=== PATIENT | female | born 1995 | race Native Hawaiian/Other Pacific Islander ===

== ENCOUNTER 2016-11-06 08:50 | Emergency (ER) | payer BC | END 2016-11-06 10:41 | disposition home or self-care (01) | DX: T15.01XA Foreign body in cornea, right eye, initial encounter (principal); X58.XXXA Exposure to other specified factors, initial encounter; H10.31 Unspecified acute conjunctivitis, right eye ==

== ENCOUNTER 2019-07-07 11:48 | Outpatient (CLI) | payer MEDICAID ==
[2019-07-07 12:35] LABS: ALBUMIN 3.7 g/dL (3.2-5.5); ALBUMIN/GLOBULIN RATIO 0.7 (1.0-2.2); ALKALINE PHOSPHATASE 82 IU/L (42-121); ALT ALANINE AMINOTRANSFERASE 21 IU/L (10-60); AST ASPARTATE AMINOTRANSFERASE 17 IU/L (10-42); BILIRUBIN,TOTAL 0.5 mg/dL (0.2-1.0); BUN - BLOOD UREA NITROGEN 10 mg/dL (6-20); CALCIUM 9.1 mg/dL (8.5-10.3); CARBON DIOXIDE - CO2 26 mmol/L (21-32); CHLORIDE 105 mmol/L (101-111); CHOL/HDL RATIO 5.1 (<4.4); CHOLESTEROL 215 mg/dL; CREATININE 0.6 mg/dL (0.4-1.0); GFR - MDRD 123 (>89); GLUCOSE 125 mg/dL (70-100); HDL CHOLESTEROL 42 mg/dL; LDL CHOLESTEROL,CALCULATED 128 mg/dL; SODIUM 138 mmol/L (135-145); TOTAL PROTEIN 8.9 g/dL (6.7-8.2); VLDL CHOLESTEROL 45 mg/dL
[2019-07-07 12:36] LABS: BILIRUBIN,DIRECT < 0.1 mg/dL (0.1-0.5)
[2019-07-07 12:50] LABS: HB2 TOTAL 13.2 g/dL; HEMOGLOBIN A1C 0.65 g/dL; HEMOGLOBIN A1C % 6.7 % (4.6-6.2)
[2019-07-07 12:54] LABS: PROLACTIN 18.27 ng/mL
[2019-07-07 13:17] LABS: FOLLICLE STIMULATING HORMONE 6.16 mIU/mL
[2019-07-08 05:11] LABS: ESTRADIOL 43 pg/mL
[2019-07-08 12:57] LABS: HEPATITIS C ANTIBODY NON-REACTIVE (NON-REACTIVE)
[2019-07-08 15:16] LABS: HIV AG/AB 4TH GEN NON-REACTIVE (NON-REACTIVE)
[2019-07-09 12:52] LABS: HSV 1 IGG TYPE SPECIFIC AB <0.90 index; HSV 2 IGG TYPE SPECIFIC AB <0.90 index
[2019-07-11 12:11] LABS: DHEA SULFATE 232 mcg/dL (18-391)
== END 2019-07-07 11:49 | disposition home or self-care (01) ==
LOC: LAB 11:48
PROVIDERS: ATTEND Obstetrics & Gynecology
DX: N97.0 Female infertility associated with anovulation (principal); E28.2 Polycystic ovarian syndrome; N91.5 Oligomenorrhea, unspecified; Z11.3 Encounter for screening for infections with a predominantly sexual mode of transmission
CPT/HCPCS: 36415; 80053; 80061; 81599; 82248; 82627; 82670; 83001; 83036; 83498; 83721; 84146; 84403; 84443; 84702; 86592; 86695; 86696; 86803; 87389

== ENCOUNTER 2019-07-29 10:55 | Outpatient (CLI) | payer MEDICAID | END 2019-07-29 10:56 | disposition home or self-care (01) | LOC: NS 10:55 | PROVIDERS: ATTEND Nurse Practitioner Family | DX: E11.9 Type 2 diabetes mellitus without complications (principal); Z71.3 Dietary counseling and surveillance; Z68.41 Body mass index [BMI] 40.0-44.9, adult; Z79.84 Long term (current) use of oral hypoglycemic drugs | CPT/HCPCS: 97802 ==

== ENCOUNTER 2019-08-12 11:50 | Outpatient (CLI) | payer MEDICAID | END 2019-08-12 11:51 | disposition home or self-care (01) | LOC: NS 11:50 | PROVIDERS: ATTEND Nurse Practitioner Family | DX: Z71.3 Dietary counseling and surveillance (principal); E11.9 Type 2 diabetes mellitus without complications; Z79.84 Long term (current) use of oral hypoglycemic drugs | CPT/HCPCS: 97803 ==

== ENCOUNTER 2020-01-26 12:01 | Outpatient (CLI) | payer MEDICAID ==
--- NOTE | 2020-01-26 21:43 | Ultrasound Report ---
Reason: OLIGOMENORRHEA Procedure Date: 01/26/2020 Accession Number: [id number] / [id number] Procedure: US - Pelvic w/Transvaginal CPT Code: Final Report FULL RESULT: EXAM: PELVIC ULTRASOUND EXAM DATE: 01/26/2020 01:24 PM. CLINICAL HISTORY: Oligomenorrhea. COMPARISON: None. TECHNIQUE: Realtime transabdominal pelvic scan performed to identify the uterus and adnexa and as an overview of other pelvic structures, followed by transvaginal scan to provide greater detail of the uterus and adnexa, with static image documentation. FINDINGS: Uterus: 6.8 x 2.8 x 3.9 cm, volume 38.3 cc. Anteverted position. Normal overall size and echotexture. Masses: None. Endometrium: 3 mm. Normal. Cervix: Unremarkable. Nabothian cyst at the left cervix. Right Ovary: 3.4 x 1.8 x 3.3 cm, volume 10.3 cc. Normal echotexture and blood flow. Left Ovary: 3.4 x 2.4 x 1.8 cm, volume 7.6 cc. Normal echotexture and blood flow. Free Fluid: None. Other: None. IMPRESSION: Normal pelvic ultrasound. RADIA
== END 2020-01-26 12:02 | disposition home or self-care (01) ==
LOC: DI 12:01
PROVIDERS: ATTEND Obstetrics & Gynecology
DX: N91.5 Oligomenorrhea, unspecified (principal); E11.9 Type 2 diabetes mellitus without complications
CPT/HCPCS: 36415; 76830; 76856; 80053; 80061; 82043; 82570; 83036; 83721; 84443

== ENCOUNTER 2020-01-26 13:22 | Outpatient (CLI) | payer MEDICAID ==
[2020-01-26 14:11] LABS: ALBUMIN 3.7 g/dL (3.2-5.5); ALBUMIN/GLOBULIN RATIO 0.8 (1.0-2.2); ALKALINE PHOSPHATASE 70 IU/L (42-121); ALT ALANINE AMINOTRANSFERASE 17 IU/L (10-60); AST ASPARTATE AMINOTRANSFERASE 14 IU/L (10-42); BILIRUBIN,TOTAL 0.6 mg/dL (0.2-1.0); BUN - BLOOD UREA NITROGEN 9 mg/dL (6-20); CALCIUM 9.4 mg/dL (8.5-10.3); CARBON DIOXIDE - CO2 27 mmol/L (21-32); CHLORIDE 103 mmol/L (101-111); CHOLESTEROL 206 mg/dL; CREATININE 0.9 mg/dL (0.4-1.0); GLUCOSE 104 mg/dL (70-100); HDL CHOLESTEROL 52 mg/dL; LDL CHOLESTEROL,CALCULATED 139 mg/dL; LDL/HDL RATIO 2.7 (<4.4); SODIUM 138 mmol/L (135-145); TOTAL PROTEIN 8.4 g/dL (6.7-8.2); VLDL CHOLESTEROL 15 mg/dL
[2020-01-26 14:15] LABS: CREATININE,URINE 60.8 mg/dL; MICROALBUMIN,URINE < 0.2 mg/dL (0-300.0)
[2020-01-26 14:55] LABS: HB2 TOTAL 13.3 g/dL; HEMOGLOBIN A1C 0.52 g/dL; HEMOGLOBIN A1C % 5.7 % (4.6-6.2)
== END 2020-01-26 13:23 | disposition home or self-care (01) ==
LOC: LAB 13:22
PROVIDERS: ATTEND Nurse Practitioner Family
DX: E11.9 Type 2 diabetes mellitus without complications (principal)
CPT/HCPCS: 36415; 80053; 80061; 82043; 82570; 83036; 83721; 84443

== ENCOUNTER 2020-02-21 12:40 | Outpatient (CLI) | payer MEDICAID ==
[2020-02-21 18:53] LABS: CALCIUM 9.1 mg/dL (8.5-10.3)
== END 2020-02-21 23:59 | disposition home or self-care (01) ==
LOC: LAB.WCP 12:40
PROVIDERS: ATTEND Nurse Practitioner Family
DX: L68.0 Hirsutism (principal)
CPT/HCPCS: 36415; 80048

== ENCOUNTER 2020-06-04 08:00 | Outpatient (CLI) | payer MEDICAID | END 2020-06-04 23:59 | disposition home or self-care (01) | LOC: LAB.R 08:00 | PROVIDERS: ATTEND Nurse Practitioner Family | DX: R30.0 Dysuria (principal) | CPT/HCPCS: 87077; 87086; 87181 ==

== ENCOUNTER 2020-06-13 08:00 | Outpatient (CLI) | payer MEDICAID ==
[2020-06-13 19:29] LABS: BILIRUBIN,URINE NEGATIVE (NEGATIVE); GLUCOSE, URINE (UA) NEGATIVE (NEGATIVE); KETONES,URINE (UA) NEGATIVE (NEGATIVE); LEUKOCYTE ESTERASE, URINE NEGATIVE (NEGATIVE); NITRITE,URINE NEGATIVE (NEGATIVE); OCCULT BLOOD,URINE NEGATIVE (NEGATIVE); PROTEIN,URINE NEGATIVE (NEGATIVE); UROBILINOGEN,URINE 0.2 (NORMAL) E.U./dL (NORMAL)
[2020-06-13 19:48] LABS: BACTERIA,URINE Rare /HPF (None Seen); CASTS, URINE 0-2 Course Granular /LPF; CLARITY,URINE CLEAR (CLEAR); MUCUS,URINE Moderate Strands; RBC,URINE None Seen /HPF (0-5); SQUAMOUS EPITHELIAL CELL,UR RARE Squamous (<= Few)
== END 2020-06-13 23:59 | disposition home or self-care (01) ==
LOC: LAB.R 08:00
PROVIDERS: ATTEND Family Medicine
DX: R30.0 Dysuria (principal)
CPT/HCPCS: 81001; 87086

== ENCOUNTER 2020-07-20 08:00 | Outpatient (CLI) | payer MEDICAID ==
[2020-07-21 00:01] LABS: TRICHOMONAS VAGINALIS DNA NEGATIVE (NEGATIVE)
== END 2020-07-20 23:59 | disposition home or self-care (01) ==
LOC: LAB.R 08:00
PROVIDERS: ATTEND Obstetrics & Gynecology
DX: Z11.3 Encounter for screening for infections with a predominantly sexual mode of transmission (principal)
CPT/HCPCS: 87491; 87591; 87661

== ENCOUNTER 2020-08-20 15:04 | Outpatient (CLI) | payer MEDICAID ==
--- NOTE | 2020-08-20 16:39 | Ultrasound Report ---
PROCEDURE: Pelvic w/Transvaginal INDICATIONS: POLYCYSTIC OVARIAN SYNDROME, ABN VAGINAL BLEEDING TECHNIQUE: Real-time scanning was performed of the pelvic organs, with image documentation. Additional endovagi nal scanning was necessary due to incomplete visualization of the adnexal and endometrial structures by transabdominal scanning. COMPARISON: None. FINDINGS: Transabdominal scanning: Limited scanning through the kidneys shows no hydronephrosis. No pathologi c free abdominal or pelvic fluid. Endovaginal scanning: Uterus: Uterus is normal in size at 6.8 x 2.8 x 3.5 cm. The endometrium measures 4 mm in combined t hickness. Ovaries: Right ovary measures 3.6 x 2.2 x 2.7 cm volume 11 cc. Greater than 12 follicles are noted. The largest measures 0.7 x 0.5 cm. Left ovary measures 3.6 x 2.3 x 3.4 cm, volume 14 cc. Greater than 12 follicles are noted. The largest follicle measures 0.6 x 0.5 cm. IMPRESSION: Bilateral follicles as above. Reviewed by: Amy Rodriguez MD on 08/20/2020 4:38 PM PST Approved by: Amy Rodriguez MD on 08/20/2020 4:38 PM PST Station ID: [id number]
== END 2020-08-20 15:05 | disposition home or self-care (01) ==
LOC: DI 15:04
PROVIDERS: ATTEND Obstetrics & Gynecology
DX: E28.2 Polycystic ovarian syndrome (principal); N93.9 Abnormal uterine and vaginal bleeding, unspecified

== ENCOUNTER 2020-12-15 08:00 | Outpatient (CLI) | payer MEDICAID | END 2020-12-15 23:59 | disposition home or self-care (01) | LOC: LAB.N 08:00 | PROVIDERS: ATTEND Family Medicine | DX: N39.0 Urinary tract infection, site not specified (principal) | CPT/HCPCS: 87077; 87086; 87181 ==